=== PATIENT | female | born 1960 | race Hispanic/Latino ===

== ENCOUNTER → 2020-02-27 | Outpatient (CLI) | payer OTHER | END | disposition home or self-care (01) | LOC: RAH 12:48 | PROVIDERS: ATTEND Internal Medicine Cardiovascular Disease | DX: Z13.6 Encounter for screening for cardiovascular disorders (principal) | CPT/HCPCS: 75571 ==

== ENCOUNTER → 2020-06-06 | Outpatient (CLI) | payer OTHER ==
[~2020-06-06] VITALS: Ht 162.6 cm; Wt 86.5 kg
[~2020-06-06] MED LIST: SODIUM CHLORIDE 0.9% 1000ML 1,000 ML IV SCH
[2020-06-06 15:01] LABS: APPEARANCE,URINE Clear (CLEAR); BASOPHILS % (AUTO) 0.7 % (0.0-5.0); BILIRUBIN,URINE Negative (NEGATIVE); COLOR,URINE Yellow (YELLOW); EOSINOPHILS % (AUTO) 1.8 % (0.0-8.0); GLUCOSE, URINE (UA) Negative (NEGATIVE); HEMATOCRIT 40.5 % (36-48); KETONES,URINE Negative (NEGATIVE); LEUKOCYTE ESTERASE ,URINE Negative (NEGATIVE); LYMPHOCYTES % (AUTO) 23.9 % (21.0-51.0); MEAN CORPUSCULAR HEMOGLOBIN 28.8 pg (27.0-33.0); MEAN CORPUSCULAR HGB CONC 32.6 g/dL (32.0-36.0); MEAN CORPUSCULAR VOLUME 88.2 fL (79-99); MONOCYTES % (AUTO) 7.3 % (3.0-13.0); NEUTROPHILS % (AUTO) 66.1 % (40.0-77.0); NITRATE,URINE Negative (NEGATIVE); OCCULT BLOOD,URINE Negative (NEGATIVE); PLATELET COUNT (AUTO) 122 K/uL (130-400); PROTEIN,URINE Negative (NEGATIVE); RED BLOOD CELL COUNT(AUTO) 4.59 MIL/uL (4.00-5.50); RED CELL DISTRIBUTION WIDTH 13.2 % (11.0-15.5); UROBILINOGEN,URINE 0.2 mg/dL (0.2-1.0)
[2020-06-06 15:10] LABS: INR 1.01 (0.85-1.15)
[2020-06-06 15:11] LABS: PARTIAL THROMBOPLASTIN TIME 28.5 SEC (26.3-35.5)
[2020-06-06 15:19] LABS: CREATININE 0.8 mg/dL (0.5-1.5); POTASSIUM 3.1 mmol/L (3.5-5.1)
[2020-06-10 10:22] VITALS: BP 184/98
== END | disposition home or self-care (01) ==
LOC: DAH 13:45 → EDSTATUS 14:00
PROVIDERS: ATTEND Internal Medicine Cardiovascular Disease
DX: Z01.810 Encounter for preprocedural cardiovascular examination (principal); I25.10 Atherosclerotic heart disease of native coronary artery without angina pectoris; Z79.01 Long term (current) use of anticoagulants; Z53.8 Procedure and treatment not carried out for other reasons
CPT/HCPCS: 36415; 71045; 80048; 81003; 85025; 85610; 85730; 93005

== ENCOUNTER 2020-08-12 06:07 | Day surgery (SDC) | payer OTHER ==
[2020-08-09 13:45] LABS: BASOPHILS % (AUTO) 0.6 % (0.0-5.0); EOSINOPHILS % (AUTO) 1.8 % (0.0-8.0); HEMATOCRIT 41.8 % (36-48); LYMPHOCYTES % (AUTO) 26.8 % (21.0-51.0); MEAN CORPUSCULAR HEMOGLOBIN 27.7 pg (27.0-33.0); MEAN CORPUSCULAR HGB CONC 31.6 g/dL (32.0-36.0); MEAN CORPUSCULAR VOLUME 87.8 fL (79-99); MONOCYTES % (AUTO) 6.9 % (3.0-13.0); NEUTROPHILS % (AUTO) 63.5 % (40.0-77.0); PLATELET COUNT (AUTO) 134 K/uL (130-400); RED BLOOD CELL COUNT(AUTO) 4.76 MIL/uL (4.00-5.50); RED CELL DISTRIBUTION WIDTH 12.9 % (11.0-15.5); WHITE BLOOD COUNT (AUTO) 9.4 K/uL (4.8-10.8)
[2020-08-09 13:49] LABS: CREATININE 0.8 mg/dL (0.5-1.5); POTASSIUM 3.4 mmol/L (3.5-5.1)
[2020-08-09 13:52] LABS: PROTHROMBIN TIME 10.9 SEC (9.6-11.6)
[2020-08-09 14:00] LABS: APPEARANCE,URINE Clear (CLEAR); BILIRUBIN,URINE Negative (NEGATIVE); COLOR,URINE Yellow (YELLOW); GLUCOSE, URINE (UA) Negative (NEGATIVE); KETONES,URINE Negative (NEGATIVE); LEUKOCYTE ESTERASE ,URINE Negative (NEGATIVE); NITRATE,URINE Negative (NEGATIVE); OCCULT BLOOD,URINE Negative (NEGATIVE); PROTEIN,URINE Negative (NEGATIVE); UROBILINOGEN,URINE 0.2 mg/dL (0.2-1.0)
[2020-08-09 14:51] VITALS: BP 189/90
[~2020-08-12] VITALS: Ht 154.9 cm; Wt 86.1 kg
[2020-08-12] VITALS (13 sets, daily range): BP systolic 116–205; BP diastolic 56–110
[~2020-08-12 06:07] MED LIST changes: +ALBU90AE IH; +ASPI-1197 PO; +ATOR40TA71 PO; +LOSA1TAB42 PO; +NEBI10TA PO; -SODIUM CHLORIDE 0.9% 1000ML 1,000 ML IV SCH
[2020-08-12] MEDS ORDERED: NACL 0.9% 1000ML 1,000 ML IV ONE (06:52)
[2020-08-12] MEDS ORDERED: IOHEXOL-350 50ML VIAL IV ONE (12:34)
[2020-08-12] MEDS ORDERED: NITROGLYCERIN 2 MG VIAL IV ONE (12:34)
[2020-08-12] MEDS ORDERED: SODIUM BICARB 50MEQ 50ML VIAL 50 ML ONE (12:34)
[2020-08-12] MEDS ORDERED: MIDAZOLAM HCL 1 MG/ML 2ML VIAL ONE ×2 (12:35→13:00)
[2020-08-12] MEDS ORDERED: LIDOCAINE HCL 400MG/20ML VIAL ONE (12:35)
[2020-08-12] MEDS ORDERED: IOHEXOL 350 MG/ML 100ML INFUS..BTL IV ONE (12:35)
[2020-08-12] MEDS ORDERED: MEPERIDINE-PF 25 MG/ML SYG ONE ×2 (12:35→13:00)
[2020-08-12] MEDS ORDERED: NICARDIPINE 25MG INJ IV ONE (12:46)
[2020-08-12] MEDS ORDERED: HEPARIN 10,000 UNIT/10ML (1,000 UNIT/ML) VIAL ONE (13:03)
[2020-08-12] MEDS ORDERED: NACL 0.9% 1000ML 1,000 ML IV SCH (13:30)
== END 2020-08-12 17:45 | disposition home or self-care (01) ==
LOC: DAH 06:07
PROVIDERS: ATTEND Internal Medicine Cardiovascular Disease
DX: I25.119 Atherosclerotic heart disease of native coronary artery with unspecified angina pectoris (principal); I10 Essential (primary) hypertension; Z88.8 Allergy status to other drugs, medicaments and biological substances; Z79.01 Long term (current) use of anticoagulants; Z90.49 Acquired absence of other specified parts of digestive tract; Z79.82 Long term (current) use of aspirin; Z79.899 Other long term (current) drug therapy
CPT/HCPCS: 36415; 71045; 80048; 81003; 85025; 85610; 85730; 93005; 93458; A4215 ×2; A4216; A4221; A4222; A4223 ×3; A4606; A4663; C1769; C1894 ×2; J1644 ×2; J2175 ×2; J2250 ×2; J3490 ×4; J7030; Q9965; Q9967 ×2; 96360; 96361; 99156; 99157

== ENCOUNTER → 2022-01-27 | Outpatient (CLI) | payer OTHER ==
[~2022-01-27] MED LIST changes: +IOHEXOL 350 MG/ML 100ML INFUS..BTL IV ONE; +METOPROLOL TARTRATE 1 MG/ML 5ML VIAL IV ONE
== END | disposition home or self-care (01) ==
LOC: RAH 07:53
PROVIDERS: ATTEND Internal Medicine Cardiovascular Disease
DX: R07.9 Chest pain, unspecified (principal)
CPT/HCPCS: 75574; Q9967; J3490

== ENCOUNTER 2024-12-26 05:58 | Day surgery (SDC) | payer OTHER ==
[2024-12-26] VITALS (11 sets, daily range): BP systolic 124–166; BP diastolic 55–80; PULSE 50–62; RESP 14–18; TEMP 93.7–97.7
[~2024-12-26] VITALS: Ht 154.9 cm; Wt 84.8 kg
[~2024-12-26 05:58] MED LIST changes: -ASPI-1197 PO; +CHLO25TA3 PO; +DILT180C77 PO; +FLUT15.845 NS; -IOHEXOL 350 MG/ML 100ML INFUS..BTL IV ONE; +ISOS60TA77 PO; +LORA10TA7 PO; +LOSA100T59 PO; -LOSA1TAB42 PO; -METOPROLOL TARTRATE 1 MG/ML 5ML VIAL IV ONE; -NEBI10TA PO; +NEBI20TA4 PO; +PANT40TA54 PO; +POTA-200 PO; +RANO500T6 PO
[2024-12-26] MEDS ORDERED: NEBI20TA4 PO (06:42)
[2024-12-26] MEDS: 0.9%NACL 1000ML 1,000 ML IV ONE (06:43)
[2024-12-26] MEDS ORDERED: LIDOCAINE HCL 1% 20 ML VIAL ONE (07:11)
== END 2024-12-26 08:44 | disposition home or self-care (01) ==
LOC: DAH 05:58 → ENDO 05:58
PROVIDERS: ATTEND Internal Medicine Gastroenterology
DX: R14.0 Abdominal distension (gaseous) (principal); D12.2 Benign neoplasm of ascending colon; K29.00 Acute gastritis without bleeding; K29.50 Unspecified chronic gastritis without bleeding; K20.90 Esophagitis, unspecified without bleeding; K44.9 Diaphragmatic hernia without obstruction or gangrene; K64.8 Other hemorrhoids; I25.10 Atherosclerotic heart disease of native coronary artery without angina pectoris; E78.5 Hyperlipidemia, unspecified; I10 Essential (primary) hypertension; Z90.49 Acquired absence of other specified parts of digestive tract; M19.90 Unspecified osteoarthritis, unspecified site; Z88.8 Allergy status to other drugs, medicaments and biological substances; Z98.890 Other specified postprocedural states; Z79.899 Other long term (current) drug therapy
CPT/HCPCS: 45380; 43239; J7030; J2704; A4620; A4215; J3490